=== PATIENT | female | born 1985 | race Caucasian/White ===

== ENCOUNTER 2017-01-26 10:04 | Day surgery (SDC) | payer OTHER ==
[~2017-01-26] VITALS: Ht 167.6 cm; Wt 86.6 kg
[~2017-01-26 10:04] MED LIST: ASPIRIN81 M2 PO; DEPO-PROVER150 MG/ML IM; IBUPROFEN800 MG PO; MIRENA1 EACH IY; PRENATAL VITAM1 EAC1 PO; VENTOLIN HFA18 GM IH; ~No Medications
[2017-01-26 10:51] VITALS: BP 119/74
[2017-01-26 11:40] LABS: METH RESISTANT S AUREUS PCR NEGATIVE (NEGATIVE)
[2017-01-26 11:41] LABS: PROBE CHECK PASS; SPECIMEN PROCESSING CONTROL PASS
[2017-01-26] MEDS ORDERED: IBUPROFEN800 MG PO (12:20)
[2017-01-26 13:48] VITALS: BP 103/61
== END 2017-01-26 13:55 | disposition home or self-care (01) ==
LOC: SDC
PROVIDERS: Obstetrics & Gynecology
PROC: 0UBC7ZX Excision of Cervix, Via Natural or Artificial Opening, Diagnostic (ICD-10-PCS; principal; 2017-01-26)
DX: D06.9 Carcinoma in situ of cervix, unspecified (principal); J45.909 Unspecified asthma, uncomplicated; K21.9 Gastro-esophageal reflux disease without esophagitis; Z80.3 Family history of malignant neoplasm of breast; Z80.1 Family history of malignant neoplasm of trachea, bronchus and lung; Z80.8 Family history of malignant neoplasm of other organs or systems; F17.200 Nicotine dependence, unspecified, uncomplicated; Z88.0 Allergy status to penicillin
CPT/HCPCS: 87641; 88305; 88307; J0131; J1100; J1885; J2250; J2405; J3010